=== PATIENT | male | born 1930 | race Caucasian/White ===

== ENCOUNTER 2016-09-05 15:45 | Emergency (ER) | payer MEDICARE, OTHER ==
[~2016-09-05] VITALS: Ht 165.1 cm; Wt 55.0 kg
[~2016-09-05 15:45] MED LIST: ADVAIR DISK1 INH; ASPIRIN325 MG PO; BL ADULT ASA81 MG PO; CAPTOPRIL12.5 MG OR; CARVEDILOL3.125 MG PO; CLONAZEP ODT1 MG OR; CORDARONE/200 MG/TAB PO; DONEPEZIL5 MG PO; DOXYCYCL HYC100 MG PO; FERROUS SULF325 M1 PO; FLOMAX0.4 M1 PO; FUROSEMIDE20 MG PO; HYTRIN2 MG PO; IMDUR60 MG PO; K-DUR/KLOR-CON10 MEQ PO; LASIX 20 MG TAB20 MG PO; LASIX 20 MG20 MG/TAB PO; LASIX 40 MG TAB40 MG PO; LEVAQUIN500 MG PO; LEVAQUIN750 MG PO; LIPITOR40 MG PO; LORAZEPAM0.5 MG PO; LOSARTAN POTASS25 MG PO; METOPROL TAR25 MG PO; METOPROLOL PO; OMEPRAZOLE20 MG PO; PLAVIX75 MG PO; POTASSIUM CHLO10 MEQ PO; PREDNISONE10 MG PO; PREVACID30 M1 PO; PREVACID30 M2 PO; SG ASA LOW81 M1 PO; SIMVASTATIN40 MG OR; SPIRIVA IN; TAMSULOSIN0.4 MG PO; TERAZOSIN1 MG OR; TESSALON PER100 MG PO; VALTREX1 GM OR
[2016-09-05 16:17] LABS: HEMATOCRIT 28.1 % (39.0-50.0); HEMOGLOBIN 9.1 g/dl (14.0-18.0); IMMATURE GRANULOCYTES 0.3 % (0.0-1.0); MEAN CELL VOLUME 97.9 fL CALC (80.0-100.0); MEAN CORPUSCULAR HGB 31.7 pG CALC (26.0-32.0); MEAN CORPUSCULAR HGB CONC 32.4 g/L CALC (32.0-36.0); NEUT# 1.43 thou/uL (1.82-7.42); RED BLOOD COUNT 2.87 mill/uL (4.70-6.10); RED CELL DISTRI WIDTH 14.7 % (11.5-15.5)
[2016-09-05 16:49] LABS: INTERNATIONAL NORMALIZED RATIO 1.1 RATIO (0.7-1.3); PROTHROMBIN TIME 11.6 SECONDS (9.0-12.5)
[2016-09-05 16:50] LABS: ALBUMIN 3.1 g/dL (3.2-5.0); ALKALINE PHOSPHATASE 90 u/l (38-126); ANION GAP 11 (6-22 (CALC)); BILIRUBIN, TOTAL 0.3 mg/dL (0.0-1.4); BUN 20 mg/dL (8-23); BUN/CREATININE RATIO 32 (12-20 (CALC)); CALCIUM 8.4 mg/dL (8.4-10.2); CARBON DIOXIDE 23 mmol/l (22-30); CHLORIDE 108 mmol/l (95-108); CREATININE 0.6 mg/dL (0.7-1.3); GFR > 60 ML/MIN (>=60 (CALC)); GFR FOR AFR.AMER. > 60 ML/MIN (>=60 (CALC)); GLUCOSE 107 mg/dL (82-115); POTASSIUM 4.2 mmol/l (3.5-5.1); SGOT/AST 39 u/l (19-48); SGPT/ALT 41 u/l (11-66); SODIUM 139 mmol/l (137-146); TOTAL PROTEIN 6.8 g/dL (6.3-8.2)
[2016-09-05 17:02] LABS: MYOGLOBIN 31 ng/mL (0 - 121)
[2016-09-05 17:22] VITALS: BP 120/67
== END 2016-09-05 17:35 | disposition home or self-care (01) ==
LOC: ED 15:45
PROVIDERS: Emergency Medicine
DX: T82.847A Pain due to cardiac prosthetic devices, implants and grafts, initial encounter (principal); R94.31 Abnormal electrocardiogram [ECG] [EKG]; I25.810 Atherosclerosis of coronary artery bypass graft(s) without angina pectoris; I10 Essential (primary) hypertension; Z86.73 Personal history of transient ischemic attack (TIA), and cerebral infarction without residual deficits; D64.9 Anemia, unspecified; I25.2 Old myocardial infarction; Z79.82 Long term (current) use of aspirin

== ENCOUNTER 2017-06-12 09:46 | Emergency (ER) | payer MEDICARE, OTHER ==
[~2017-06-12] VITALS: Ht 12.7 cm; Wt 57.3 kg
[~2017-06-12 09:46] MED LIST changes: +LIPITOR20 MG PO; -LIPITOR40 MG PO
[2017-06-12] MEDS ORDERED: LOSARTAN POT25 MG PO (10:10)
[2017-06-12] MEDS ORDERED: CETIRIZINE10 MG PO (10:14)
[2017-06-12] MEDS ORDERED: FLONASE AL50 MCG/ACT NAB (10:14)
[2017-06-12] MEDS ORDERED: STIOLTO RESPIMA1 AER IN (10:14)
[2017-06-12] MEDS ORDERED: SINGULAIR10 MG PO (10:15)
[2017-06-12 10:17] VITALS: BP 105/59
[2017-06-12] MEDS ORDERED: VOLTAREN1%GEL TOP (10:40)
[2017-06-12] MEDS ORDERED: ASPERCREME LIDOCA41 TOP (10:40)
== END 2017-06-12 10:50 | disposition home or self-care (01) ==
LOC: ED 09:46
DX: M25.552 Pain in left hip (principal); S76.012A Strain of muscle, fascia and tendon of left hip, initial encounter; M54.5 Low back pain

== ENCOUNTER 2017-08-04 10:01 | Emergency (ER) | payer MEDICARE, OTHER ==
[~2017-08-04] VITALS: Ht 165.1 cm; Wt 55.4 kg
[~2017-08-04 10:01] MED LIST changes: +ASPERCREME LIDOCA41 TOP; +CETIRIZINE10 MG PO; +FLONASE AL50 MCG/ACT NAB; +LOSARTAN POT25 MG PO; +SINGULAIR10 MG PO; +STIOLTO RESPIMA1 AER IN; +VOLTAREN1%GEL TOP
[2017-08-04] MEDS ORDERED: TRAMADOL HYDROC50 MG PO (10:54)
[2017-08-04 11:10] VITALS: BP 98/56
== END 2017-08-04 11:11 | disposition home or self-care (01) ==
LOC: ED 10:01
DX: M79.5 Residual foreign body in soft tissue (principal); M79.642 Pain in left hand; I10 Essential (primary) hypertension; I25.10 Atherosclerotic heart disease of native coronary artery without angina pectoris; I25.2 Old myocardial infarction; Z95.1 Presence of aortocoronary bypass graft; Z86.73 Personal history of transient ischemic attack (TIA), and cerebral infarction without residual deficits; Z95.0 Presence of cardiac pacemaker

== ENCOUNTER 2017-11-20 15:11 | Emergency (ER) | payer MEDICARE, OTHER ==
[~2017-11-20] VITALS: Ht 165.1 cm; Wt 54.5 kg
[~2017-11-20 15:11] MED LIST changes: +TRAMADOL HYDROC50 MG PO
[2017-11-20] MEDS ORDERED: ZYRTEC10 MG PO (15:44)
[2017-11-20] MEDS ORDERED: PLAVIX75 MG PO (15:44)
[2017-11-20 15:48] LABS: HEMATOCRIT 35.1 % (39.0-50.0); HEMOGLOBIN 10.3 g/dl (14.0-18.0); MEAN CELL VOLUME 86.2 fL CALC (80.0-100.0); MEAN CORPUSCULAR HGB 25.3 pG CALC (26.0-32.0); MEAN CORPUSCULAR HGB CONC 29.3 g/L CALC (32.0-36.0); NEUT# 3.38 thou/uL (1.82-7.42); RED BLOOD COUNT 4.07 mill/uL (4.70-6.10); RED CELL DISTRI WIDTH 23.7 % (11.5-15.5)
[2017-11-20 15:53] LABS: ALBUMIN 2.7 g/dL (3.2-5.0); ALKALINE PHOSPHATASE 96 u/l (38-126); ANION GAP 10 (6-22 (CALC)); BILIRUBIN, TOTAL 0.4 mg/dL (0.0-1.4); BUN 24 mg/dL (8-23); BUN/CREATININE RATIO 40 (12-20 (CALC)); CARBON DIOXIDE 23 mmol/l (22-30); CHLORIDE 112 mmol/l (95-108); CREATININE 0.6 mg/dL (0.7-1.3); GFR > 60 ML/MIN (>=60 (CALC)); GFR FOR AFR.AMER. > 60 ML/MIN (>=60 (CALC)); LIPASE 112 u/l (23-300); POTASSIUM 4.3 mmol/l (3.5-5.1); SGOT/AST 42 u/l (19-48); SODIUM 140 mmol/l (137-146); TOTAL PROTEIN 6.4 g/dL (6.3-8.2)
--- NOTE | 2017-11-20 16:21 | NUR ---
CALLED TO PT ROOM FOR STEMI ALERT. PT GIVING 2X TX OF ALBUTERAL. PT INTUBATED ON FIRST ATTEMPT BY . 7.5 TUBE SECURED AT 26 AT THE LIP. PLACEMENT VERIFIED BY BILATERAL OCCULTATION AND XRAY PRIOR TO TRANSPORT BY AIR TO [facility].
[2017-11-20 16:30] VITALS: BP 184/85
== END 2017-11-20 16:30 | disposition short-term general hospital (02) ==
LOC: ED 15:11
PROVIDERS: Family Medicine
PROC: 0BH17EZ Insertion of Endotracheal Airway into Trachea, Via Natural or Artificial Opening (ICD-10-PCS; principal; 2017-11-20)
DX: I50.9 Heart failure, unspecified (principal); N17.9 Acute kidney failure, unspecified; I10 Essential (primary) hypertension; R10.84 Generalized abdominal pain; R53.1 Weakness; R42 Dizziness and giddiness; R06.02 Shortness of breath

== ENCOUNTER 2017-12-15 11:09 | Observation (INO) | payer MEDICARE, OTHER ==
[~2017-12-15] VITALS: Ht 165.1 cm; Wt 48.7 kg
[~2017-12-15 11:09] MED LIST changes: +ZYRTEC10 MG PO
[2017-12-15 11:42] LABS: MEAN CELL VOLUME 86.2 fL CALC (80.0-100.0); MEAN CORPUSCULAR HGB 26.8 pG CALC (26.0-32.0); MEAN CORPUSCULAR HGB CONC 31.1 g/L CALC (32.0-36.0); NEUT# 4.69 thou/uL (1.82-7.42); RED CELL DISTRI WIDTH 24.3 % (11.5-15.5)
[2017-12-15 11:46] LABS: HEMATOCRIT 43.1 % (39.0-50.0); HEMOGLOBIN 13.4 g/dl (14.0-18.0)
[2017-12-15 11:54] LABS: INFLUENZA A NONE DETECTED (NONE DETECT); INFLUENZA B NONE DETECTED (NONE DETECT)
[2017-12-15 11:55] LABS: ANION GAP 14 (6-22 (CALC)); BUN 40 mg/dL (8-23); BUN/CREATININE RATIO 50 (12-20 (CALC)); CARBON DIOXIDE 22 mmol/l (22-30); CHLORIDE 103 mmol/l (95-108); CREATININE 0.8 mg/dL (0.7-1.3); GFR > 60 ML/MIN (>=60 (CALC)); GFR FOR AFR.AMER. > 60 ML/MIN (>=60 (CALC)); POTASSIUM 4.6 mmol/l (3.5-5.1); SODIUM 134 mmol/l (137-146)
--- NOTE | 2017-12-15 13:20 | NUR ---
CM received a call from the in the ED per 's request regarding admission status for FTT and hypertension. CM asked if a cardene drip is needed for the HTN, in the background stated"no just fluids". CM advised observation.
--- NOTE | 2017-12-15 13:44 | NUR ---
Dr. Yuan came into CM office stating he wanted to admit Patient as inpaient status. Digital Advertising Specialist stated that Patient only meets observational status. Patient had been brought into [facility] ED 11.20.2017 and transferred to [facility] related to condition. Dr. Yuan informed by other CM staff that possibly Patient's inpatient stay at [facility] could be used to qualify him for admission to SNF - related to 3 midnight+ stay in [facility]. CM calling [facility] to inquire on admission/discharge dates and inpatient/observational status whilst admitted at [facility].
--- NOTE | 2017-12-15 14:11 | NUR ---
PT OOB TO CHAIR NEXT TO STRETCHER PER DISCOMFORT IN THE STRETCHER. PT AWARE OF PENDING ADMISSION.
[2017-12-15 14:31] LABS: URINE BILIRUBIN - DIPSTICK NEGATIVE (NEGATIVE); URINE BLOOD DIPSTICK NEGATIVE (NEGATIVE); URINE COLOR YELLOW; URINE GLUCOSE - DIPSTICK NEGATIVE (NEGATIVE); URINE KETONE NEGATIVE (NEGATIVE); URINE LEUK ESTERASE NEGATIVE (NEGATIVE); URINE NITRITE - DIPSTICK NEGATIVE (Negative); URINE PH 5.5 (4.5-8.0); URINE PROTEIN - DIPSTICK NEGATIVE (NEG-TRACE); URINE UROBILINOGEN - DIPSTICK 0.2 E.U./dL (0.2)
[2017-12-15 14:41] LABS: URINE CLARITY CLEAR
--- NOTE | 2017-12-15 15:10 | NUR ---
PT TAKEN TO ROOM 269 WITHOUT INCIDENT. REPORT WAS TO ROCIO BLANC.
--- NOTE | 2017-12-15 15:30 | NUR ---
REPORT RECEIVED FROM LEANNE IN ED, PT ARRIVED ON UNIT VIA W/C @ 1505, ALERT AND ORIENTED X 4, ORIENTED TO ROOM AND CALL GUZMÁN, SETTLED IN BED, VITAL SIGNS MEASURED AND RECORDED, WILL CONTINUE TO MONITOR, SON IN ROOM. DR DICKENS JUST ROUNDED.
[2017-12-15 15:38] VITALS: BP 89/56
[2017-12-15 18:30] VITALS: BP 92/53
[2017-12-15 19:00] VITALS: BP 101/63
--- NOTE | 2017-12-15 19:47 | NUR ---
REPORT GIVEN BY ROCIO BLANC. PATIENT RESTING WITH EYES CLOSED. RESP EVEN AND UNLABORED. NO S/S OF DISTRESS NOTED. PLAN OF CARE DISCUSSED, FALL PRECAUTIONS IN PLACE, AND PATIENT INFORMED TO CALL WITH ANY QUESTIONS OR CONCERNS.
[2017-12-16 00:05] VITALS: BP 108/63
--- NOTE | 2017-12-16 00:30 | NUR ---
PATIENT AWAKE LAYING ING BED. RESP EVEN AND UNLABORED. NO S/S OF DISTRESS NOTED.
--- NOTE | 2017-12-16 04:02 | NUR ---
PATIENT RESTING WITH EYES CLOSED. RESP EVEN AND UNLABORED. NO S/S OF DISTRESS NOTED.
[2017-12-16 04:17] VITALS: BP 95/57
[2017-12-16 05:54] LABS: HEMATOCRIT 42.4 % (39.0-50.0); HEMOGLOBIN 13.2 g/dl (14.0-18.0); IMMATURE GRANULOCYTES 1.3 % (0.0-5.0); MEAN CELL VOLUME 86.7 fL CALC (80.0-100.0); MEAN CORPUSCULAR HGB CONC 31.1 g/L CALC (32.0-36.0); NEUT# 3.32 thou/uL (1.82-7.42); RED BLOOD COUNT 4.89 mill/uL (4.70-6.10); RED CELL DISTRI WIDTH 24.4 % (11.5-15.5)
[2017-12-16 06:10] LABS: ALBUMIN 2.7 g/dL (3.2-5.0); ALKALINE PHOSPHATASE 104 u/l (38-126); ANION GAP 8 (6-22 (CALC)); BILIRUBIN, TOTAL 0.5 mg/dL (0.0-1.4); BUN 31 mg/dL (8-23); BUN/CREATININE RATIO 40 (12-20 (CALC)); CARBON DIOXIDE 28 mmol/l (22-30); CHLORIDE 108 mmol/l (95-108); CREATININE 0.8 mg/dL (0.7-1.3); GFR > 60 ML/MIN (>=60 (CALC)); GFR FOR AFR.AMER. > 60 ML/MIN (>=60 (CALC)); MAGNESIUM 2.3 mg/dL (1.6-2.3); POTASSIUM 4.9 mmol/l (3.5-5.1); SGOT/AST 44 u/l (19-48); SODIUM 140 mmol/l (137-146); TOTAL PROTEIN 6.2 g/dL (6.3-8.2)
--- NOTE | 2017-12-16 07:41 | NUR ---
SHIFT CHANGE REPORT FROM JHONATAN, PT SLEEPING SOUNDLY IN RIGHT-SIDELYING POSITION, BREATHING AND NON-LABORED, NO SIGN DISCOMFORT, TELE MONITOR IN PLACE, CALL GUZMÁN IN REACH.
[2017-12-16 08:53] VITALS: BP 100/52
[2017-12-16 12:00] VITALS: BP 108/67
--- NOTE | 2017-12-16 12:22 | NUR ---
GREAT APPETITE AND ENJOYING ALL MEALS, ALL NEEDS ADDRESSED, CALL GUZMÁN IN REACH.
--- NOTE | 2017-12-16 16:28 | NUR ---
RESTING IN BED, SLEEPING, NO SIGN DICOMFORT.
[2017-12-16 16:33] VITALS: BP 109/60
[2017-12-16 19:30] VITALS: BP 101/61
--- NOTE | 2017-12-16 20:00 | NUR ---
PT RESTING IN THE BED. EASILY AROUSIBLE. PT DENIES PAIN. BED IN LOWEST POSITION. CALL LIGHT WITHIN REACH. REPORT RECIEVED FROM OFF GOING NURSE.
[2017-12-17 00:42] VITALS: BP 98/57
[2017-12-17 04:30] VITALS: BP 115/78
[2017-12-17 06:06] LABS: HEMATOCRIT 38.5 % (39.0-50.0); HEMOGLOBIN 12.1 g/dl (14.0-18.0); MEAN CELL VOLUME 86.3 fL CALC (80.0-100.0); MEAN CORPUSCULAR HGB 27.1 pG CALC (26.0-32.0); MEAN CORPUSCULAR HGB CONC 31.4 g/L CALC (32.0-36.0); RED BLOOD COUNT 4.46 mill/uL (4.70-6.10); RED CELL DISTRI WIDTH 24.3 % (11.5-15.5)
[2017-12-17 06:40] LABS: ANION GAP 7 (6-22 (CALC)); BUN 23 mg/dL (8-23); BUN/CREATININE RATIO 41 (12-20 (CALC)); CARBON DIOXIDE 25 mmol/l (22-30); CHLORIDE 108 mmol/l (95-108); CREATININE 0.6 mg/dL (0.7-1.3); GFR > 60 ML/MIN (>=60 (CALC)); GFR FOR AFR.AMER. > 60 ML/MIN (>=60 (CALC)); MAGNESIUM 2.1 mg/dL (1.6-2.3); POTASSIUM 4.2 mmol/l (3.5-5.1); SODIUM 136 mmol/l (137-146)
--- NOTE | 2017-12-17 07:40 | NUR ---
SHIFT CHANGE REPORT FROM DEWAYNE GUILLEN SLEEPING IN SUPINE POSITION WITH MOUTH BREATHING, NO SIGH DISTRESS, TELE MONITOR IN PLACE, CALL GUZMÁN IN REACH.
[2017-12-17 08:26] VITALS: BP 97/59
[2017-12-17 11:00] VITALS: BP 102/58
--- NOTE | 2017-12-17 11:28 | NUR ---
DR DICKENS ROUNDED, INFORMED PT OF CONDITION AND SUGGESTED HOSPICE CARE, I CALLED SON & POA (ROSALBA) TO HAVE HIM COME IN TO DISCUSS PLANS BUT NO ANSWER, MESSAGE LEFT ON PHONE.
--- NOTE | 2017-12-17 11:52 | NUR ---
SITTING UP ON SIDE OF BED HAVING MEAL AT THIS TIME, ALL NEEDS ADDRESSED.
--- NOTE | 2017-12-17 13:05 | NUR ---
SCRAPER MEAT CALLED REPORTING 10+ BEATS V-TACH, ON ASSESSMENT PT IN NO DISTRESS CONVERSING WITH SON, MEDICAL TEAM NOTIFIED AND GIVEN STRIP, WILL CONTINUE TO MONITOR.
--- NOTE | 2017-12-17 14:39 | NUR ---
DR DICKENS INFORMED PT OF CARDIAC CONDITION, RECOMMENDED HOSPICE CARE AND DISCUSSED DNR STATUS, PT HAD ALREADY PROVIDED LIVING WILL & POA, DNR FORM SIGNED BY PHYSICIAN AND PT, THIS WAS DONE IN THE PRESENCE OF ROSALBA DAILEY, PT'S SON & POA WHO STATED UNDERSTANDING.
[2017-12-17 15:00] VITALS: BP 98/62
--- NOTE | 2017-12-17 16:00 | NUR ---
RESTING IN BED, ALL NEEDS MET, NO C/O DISCOMFORT
[2017-12-17 19:14] VITALS: BP 112/61
--- NOTE | 2017-12-17 20:36 | NUR ---
REPORT RECIEVED FROM OFFGOING NURSE. PT IN BED. NO SIGNS OF PAIN OR DISTRESS. BED IN LOWEST POSITION. CALL LIGHT IN REACH.
--- NOTE | 2017-12-18 00:37 | NUR ---
PT RESTING IN BED WITH EYES CLOSED. NO S/S OF PAIN OR DISTRESS. BED IN LOWEST POSITI. CALL LIGHT W/I REACH.
--- NOTE | 2017-12-18 03:22 | NUR ---
PT RESTIN IN BED. EASILY AROUSED. NO PAIN OR DISTRESSED NOTED. CALL LIGHT WITHIN REACH.
[2017-12-18 04:00] VITALS: BP 101/69
[2017-12-18 07:30] VITALS: BP 89/55
--- NOTE | 2017-12-18 07:30 | NUR ---
PT WAS IN THE BATHROOM A 0725. REENTERED PT'S ROOM. SITTING ON THE SIDE OF THE BED IV SITE IS FREE FROM REDNESS OR EDEMA. HR IS REG,PULSES ARE STRONG X4, ABD IS SOFT WITH ACTIVE BS. BREATH SOUNDS ARE CLEAR, BILATERALLY, TELE MONITOR IN PLACE CONTINUE TO OBSERVE AND MONITOR.
--- NOTE | 2017-12-18 09:42 | NUR ---
SPOKE JACKIE LA FROM HOSPICE. SHE WILL EITHER SEND HER NURSE OR MANAGEMENT SUPERVISOR TO SPEAK WITH PT AND FAMILY
--- NOTE | 2017-12-18 09:48 | NUR ---
RANCH HAND LIVESTOCK FROM HOSPICE WILL BE HERE AFTER 11AM.
[2017-12-18 11:00] VITALS: BP 100/66
--- NOTE | 2017-12-18 11:40 | NUR ---
CESARIO FROM HOSPICE SPOKE WITH PT. AND FAMILY. ZAIN WILL COME IN AROUND 1PM TO SPEAK WITH PT AND FAMILY AND MAKE ARRANGEMENTS FOR HOME.
--- NOTE | 2017-12-18 14:00 | NUR ---
PT'S IV SITE DISCONITNUED CATHETER INTACT. FAMILY IN THE ROOM. DISCHARGE INSTRUCTIONS GIVEN AND VERBALIZED UNDERSTANDING. HOSPICE IN TO VISIT WITH PT. SENT ORDERS TO HOSPICE. CONTINUE TO OSBERVE AND MONITOR.
--- NOTE | 2017-12-18 15:02 | NUR ---
Discharge instructions given. Patient verbalizes understanding of same. Discharged in stable condition via Wheelchair to Home with family. All belongings sent with pt.
== END 2017-12-18 14:24 | disposition hospice, home (50) ==
LOC: ED 11:09 → ED-I 13:11 → ED 13:48 → MS2 13:49
PROVIDERS: Family Medicine; Nurse Practitioner Family; ADMIT Internal Medicine Nephrology; ATTEND Internal Medicine Nephrology
DX: I11.0 Hypertensive heart disease with heart failure (principal); I50.9 Heart failure, unspecified; J44.9 Chronic obstructive pulmonary disease, unspecified; R62.7 Adult failure to thrive; I25.10 Atherosclerotic heart disease of native coronary artery without angina pectoris; E78.5 Hyperlipidemia, unspecified; B19.20 Unspecified viral hepatitis C without hepatic coma; F41.9 Anxiety disorder, unspecified; F03.90 Unspecified dementia, unspecified severity, without behavioral disturbance, psychotic disturbance, mood disturbance, and anxiety; G47.33 Obstructive sleep apnea (adult) (pediatric); D50.9 Iron deficiency anemia, unspecified; R63.6 Underweight; I73.9 Peripheral vascular disease, unspecified; I25.2 Old myocardial infarction; Z95.0 Presence of cardiac pacemaker; Z95.1 Presence of aortocoronary bypass graft; Z86.73 Personal history of transient ischemic attack (TIA), and cerebral infarction without residual deficits; Z87.891 Personal history of nicotine dependence; Z68.1 Body mass index [BMI] 19.9 or less, adult; Z95.3 Presence of xenogenic heart valve; Z66 Do not resuscitate; Z51.5 Encounter for palliative care; Z95.5 Presence of coronary angioplasty implant and graft

== ENCOUNTER 2019-05-15 | Emergency (ER) | payer MEDICARE, OTHER ==
[2019-05-15 14:23] LABS: HEMATOCRIT 34.4 % (39.0-50.0); HEMOGLOBIN 11.2 g/dl (14.0-18.0); IMMATURE GRANULOCYTES 0.7 % (0.0-5.0); MEAN CORPUSCULAR HGB CONC 32.6 g/dL CAL (32.0-36.0); NEUT# 3.37 thou/uL (1.82-7.42); RED BLOOD COUNT 3.39 mill/uL (4.70-6.10); RED CELL DISTRI WIDTH 14.5 % (11.5-15.5)
[2019-05-15 14:29] LABS: MEAN CELL VOLUME 101.5 fL CALC (80.0-100.0)
[2019-05-15 14:32] LABS: INTERNATIONAL NORMALIZED RATIO 1.1 RATIO (0.7-1.3); PROTHROMBIN TIME 11.5 SECONDS (9.0-12.5)
[2019-05-15 14:37] LABS: ALBUMIN 3.1 g/dL (3.2-5.0); ALKALINE PHOSPHATASE 86 u/l (38-126); ANION GAP 11 (6-22 (CALC)); BILIRUBIN, TOTAL 0.5 mg/dL (0.0-1.4); BUN 36 mg/dL (8-23); BUN/CREATININE RATIO 42 (12-20 (CALC)); CARBON DIOXIDE 25 mmol/l (22-30); CHLORIDE 104 mmol/l (95-108); CREATININE 0.9 mg/dL (0.7-1.3); GFR > 60 ML/MIN (>=60 (CALC)); GFR FOR AFR.AMER. > 60 ML/MIN (>=60 (CALC)); POTASSIUM 4.1 mmol/l (3.5-5.1); SGOT/AST 37 u/l (19-48); SODIUM 136 mmol/l (137-146); TOTAL PROTEIN 7.1 g/dL (6.3-8.2)
[2019-05-15 14:45] LABS: MYOGLOBIN 41 ng/mL (0 - 121)
== END 2019-05-15 18:20 | disposition left against medical advice (07) ==
PROVIDERS: Family Medicine
DX: R55 Syncope and collapse (principal); I10 Essential (primary) hypertension; I25.10 Atherosclerotic heart disease of native coronary artery without angina pectoris; I25.2 Old myocardial infarction; Z95.1 Presence of aortocoronary bypass graft; Z95.0 Presence of cardiac pacemaker; Z86.73 Personal history of transient ischemic attack (TIA), and cerebral infarction without residual deficits; Z91.19 Patient's noncompliance with other medical treatment and regimen

== ENCOUNTER 2019-12-26 13:58 | Inpatient (IN) | payer MEDICARE, OTHER ==
[~2019-12-26] VITALS: Ht 165.1 cm; Wt 47.0 kg
--- NOTE | 2019-12-26 14:20 | NUR ---
Pt to room # 11 via EMS stretchher.
[2019-12-26 15:14] LABS: HEMATOCRIT 34.9 % (39.0-50.0); HEMOGLOBIN 11.5 g/dl (14.0-18.0); IMMATURE GRANULOCYTES 0.8 % (0.0-5.0); MEAN CELL VOLUME 100.6 fL CALC (80.0-100.0); MEAN CORPUSCULAR HGB 33.1 pG CALC (26.0-32.0); NEUT# 3.34 thou/uL (1.82-7.42); RED BLOOD COUNT 3.47 mill/uL (4.70-6.10)
--- NOTE | 2019-12-26 15:30 | NUR ---
IV MEDS INFUSING WITHOUT DIFFICULTY. BP REMAINS LOW. FLUIDS INFUSING. ALL OTHER VITALS STABLE.
[2019-12-26 15:36] LABS: ALBUMIN 3.5 g/dL (3.2-5.0); ALKALINE PHOSPHATASE 109 u/l (38-126); ANION GAP 11 (6-22 (CALC)); BILIRUBIN, TOTAL 0.6 mg/dL (0.0-1.4); CARBON DIOXIDE 26 mmol/l (22-30); CHLORIDE 99 mmol/l (95-108); CREATININE 0.9 mg/dL (0.7-1.3); GFR > 60 ML/MIN (>=60 (CALC)); GFR FOR AFR.AMER. > 60 ML/MIN (>=60 (CALC)); POTASSIUM 4.2 mmol/l (3.5-5.1); SGOT/AST 47 u/l (19-48); SODIUM 132 mmol/l (137-146); TOTAL PROTEIN 8.2 g/dL (6.3-8.2)
[2019-12-26 15:43] LABS: BUN 41 mg/dL (8-23); BUN/CREATININE RATIO 46 (12-20 (CALC))
[2019-12-26] MEDS ORDERED: IRON (FERROUS S50 MG PO (16:08)
--- NOTE | 2019-12-26 16:28 | NUR ---
WARM BLANKET PROVIDED. BED IN LOW POSITION. IV MEDS CONTINUE TO INFUSE WITHOUT DIFFICULTY.
--- NOTE | 2019-12-26 17:35 | NUR ---
IV MEDS COMPLETED. BLANKETS PROVIDED. VITALS STABLE, BP REMAINS LOW, MD AWARE.
[2019-12-26 17:58] LABS: URINE BILIRUBIN - DIPSTICK NEGATIVE (NEGATIVE); URINE BLOOD DIPSTICK NEGATIVE (NEGATIVE); URINE COLOR YELLOW; URINE GLUCOSE - DIPSTICK NEGATIVE (NEGATIVE); URINE KETONE NEGATIVE (NEGATIVE); URINE LEUK ESTERASE NEGATIVE (NEGATIVE); URINE NITRITE - DIPSTICK NEGATIVE (Negative); URINE PROTEIN - DIPSTICK NEGATIVE (NEG-TRACE); URINE SPECIFIC GRAVITY 1.015; URINE UROBILINOGEN - DIPSTICK 0.2 E.U./dL (0.2)
--- NOTE | 2019-12-26 18:05 | NUR ---
REPORT CALLED TO FRAN GALLARDO RN.
[2019-12-26 18:20] VITALS: BP 95/64
--- NOTE | 2019-12-26 18:20 | NUR ---
PATIENT ARRIVE TO FLOOR FROM ER, PATIENT PLACED ON 2 LITERS OF 02. PATIENT ALERT AND ORIENTED AND WAS ORIENTED TO ROOM. ALL SAFETY MEASURES ARE IN PLACE CALL LIGHT NEAR SIDERAILS UP X 2. WARM BLANKET GIVEN TO PATIENT.
--- NOTE | 2019-12-26 20:05 | NUR ---
PT LAYING IN BED, NO S/O DISTRESS NOTED AT THIS TIME. DINNER TRAY AT BEDSIDE, PT DENIES BEING HUNGRY. OFFERED WATER, DENIED. ATTEMPTS TO OBTAIN QUESTIONS FOR ADMISSION MADE AT THIS TIME, BUT IT IS VERY DIFFICULT TO COMMUNICATE WITH PT DUE TO NOISE IN NEG PRESSURE ROOM AND PT DID NOT BRING HIS HEARING AIDS WITH HIM. HE IS VERY HARD OF HEARING. PT ALSO WOULD BECOME SOMEWHAT AGITATED WHEN ASKED QUESTIONS. I EXPLAINED LOVONOX MEDICATION SHOT TO THE PT, HE SAID "GOD NO!" PT DOES APPEARS LOCX4 AT THIS TIME. WILL CONTINUE TO MONITOR BP AND OXYGEN SAT LEVELS. 96%RA AT THIS TIME.
--- NOTE | 2019-12-26 20:34 | NUR ---
RETURNED SONS CALL WITH PERMISSION OF PT, PROVIDED PASSCODE. THIS HAD NOT BEEN PROVIDED IN ED. DISCUSSED TESTS, LABS AND POC WITH SON, AGREED. HE REPORTS THAT HIS FATHER LIVES ALONE AT HOME.
[2019-12-26 20:50] VITALS: BP 84/52
[2019-12-26 22:10] VITALS: BP 91/58
--- NOTE | 2019-12-26 22:18 | NUR ---
PT SLEEPING, AWOKE TO MY VOICE AND TOUCH. B/P ASSESSED AT THIS TIME, 93/58. PT C/O BEING DISTURBED AND WANTING SLEEP. I EXPLAINED TO THE PT WHY HE WAS GETTING SO MANY V/S ASSESSMENTS DUE TO HYPOTENSION UPON ADMISSION. HE ASKED ME TO LEAVE HIM ALONE AND LET HIM "GET SOME REST" FOR AWHILE. CALL LIGHT AT SIDE ALONG WITH URINAL AND PT REORIENTED TO ITS USE.
[2019-12-26 23:57] VITALS: BP 90/52
--- NOTE | 2019-12-27 | NUR ---
PT IS RESTING IN BED, NO S/SX OF DISCOMFORT OR DISTRESSED NOTED AT THIS TIME, WILL CONTINUE TO MONITOR.
[2019-12-27 04:08] VITALS: BP 94/54
--- NOTE | 2019-12-27 04:08 | NUR ---
V/S ASSESSED, EMPTIED URINAL OF 300CC OF DARK YELLOW URINE. PT SPILLED SOME URINE IN BED AND ON HIS GOWN, PT CLEANED OF URINE AND BEDDING CHANGED. PT DENIES NEEDS AT THIS TIME. CALL LIGHT AT SIDE.
[2019-12-27 05:32] LABS: HEMATOCRIT 33.5 % (39.0-50.0); IMMATURE GRANULOCYTES 0.5 % (0.0-5.0); MEAN CELL VOLUME 101.2 fL CALC (80.0-100.0); MEAN CORPUSCULAR HGB 33.2 pG CALC (26.0-32.0); MEAN CORPUSCULAR HGB CONC 32.8 g/dL CAL (32.0-36.0); NEUT# 3.69 thou/uL (1.82-7.42); RED BLOOD COUNT 3.31 mill/uL (4.70-6.10); RED CELL DISTRI WIDTH 13.1 % (11.5-15.5)
[2019-12-27 06:00] LABS: ALKALINE PHOSPHATASE 109 u/l (38-126); ANION GAP 9 (6-22 (CALC)); BILIRUBIN, TOTAL 0.5 mg/dL (0.0-1.4); BUN 34 mg/dL (8-23); BUN/CREATININE RATIO 40 (12-20 (CALC)); C-REACTIVE PROTEIN 3.2 mg/dL (0-0.9); CARBON DIOXIDE 26 mmol/l (22-30); CHLORIDE 105 mmol/l (95-108); CREATININE 0.8 mg/dL (0.7-1.3); GFR > 60 ML/MIN (>=60 (CALC)); GFR FOR AFR.AMER. > 60 ML/MIN (>=60 (CALC)); POTASSIUM 4.6 mmol/l (3.5-5.1); SGOT/AST 27 u/l (19-48); SODIUM 136 mmol/l (137-146)
[2019-12-27 10:50] VITALS: BP 102/61
[2019-12-27 14:58] VITALS: BP 108/64
[2019-12-27 19:40] VITALS: BP 103/58
--- NOTE | 2019-12-27 20:00 | NUR ---
REPORT RECEIEVED FROM DAY SHIFT, PT IS A&O X 2 AND PULLED OUT PIV AT SHIFT CHANGE. NO CURRENT S/SX OF DISTRESS OR DISCOMFORT NOTED AT THIS TIME. TELE IN PLACE. WILL OBTAIN NEW IV ACCESS, CONTINUE TO MONITOR.
--- NOTE | 2019-12-28 | NUR ---
PT IS RESTING IN BED, NO S/SX OF DISCOMFORT OR DISTRESSED NOTED AT THIS TIME, WILL CONTINUE TO MONITOR.
[2019-12-28 00:35] VITALS: BP 93/63
--- NOTE | 2019-12-28 04:00 | NUR ---
PT IS RESTING IN BED, NO S/SX OF DISCOMFORT OR DISTRESSED NOTED AT THIS TIME, WILL CONTINUE TO MONITOR.
--- NOTE | 2019-12-28 04:00 | NUR ---
PT IS RESTING IN BED, NO S/SX OF DISCOMFORT OR DISTRESSED NOTED AT THIS TIME, WILL CONTINUE TO MONITOR.
[2019-12-28 05:05] VITALS: BP 103/64
[2019-12-28 06:40] LABS: HEMATOCRIT 34.4 % (39.0-50.0); HEMOGLOBIN 11.1 g/dl (14.0-18.0); MEAN CELL VOLUME 101.2 fL CALC (80.0-100.0); MEAN CORPUSCULAR HGB 32.6 pG CALC (26.0-32.0); MEAN CORPUSCULAR HGB CONC 32.3 g/dL CAL (32.0-36.0); RED BLOOD COUNT 3.4 mill/uL (4.70-6.10); RED CELL DISTRI WIDTH 13.1 % (11.5-15.5)
[2019-12-28 06:58] LABS: ANION GAP 11 (6-22 (CALC)); BUN 21 mg/dL (8-23); BUN/CREATININE RATIO 27 (12-20 (CALC)); CARBON DIOXIDE 24 mmol/l (22-30); CHLORIDE 103 mmol/l (95-108); CREATININE 0.8 mg/dL (0.7-1.3); GFR > 60 ML/MIN (>=60 (CALC)); GFR FOR AFR.AMER. > 60 ML/MIN (>=60 (CALC)); POTASSIUM 4.3 mmol/l (3.5-5.1); SODIUM 134 mmol/l (137-146)
[2019-12-28 08:19] VITALS: BP 106/65
--- NOTE | 2019-12-28 08:19 | NUR ---
PT RESTING IN BED, NO SIGNS OF DISTRESS NOTED, RESP EVEN AND UNLABORED. PT ALERT AND ORIENTED X3, DISCUSSED POC, PT VOICES NO NEEDS OR COMPLAINTS AT THIS TIME. ASSESSMENT COMPLETED, CALL LIGHT IN REACH,CONTINUE TO MONITOR.
[2019-12-28 10:55] VITALS: BP 92/59
[2019-12-28] MEDS ORDERED: AMOX/K CLAV875 M1 PO (12:14)
--- NOTE | 2019-12-28 13:07 | NUR ---
DISCUSSED DISCHARGE INSTRUCTIONS, INFORMED PT THAT COVID SWAB NEGATIVE. PT SIGNED AND CALLED HIS RIDE, IV REMOVED, CATHETER INTACT. WILL CALL ONCE RIDE ARRIVES.
--- NOTE | 2019-12-28 13:28 | NUR ---
Discharge instructions given. Patient verbalizes understanding of same. Discharged in stable condition via Wheelchair to Home with family. All belongings sent with pt.
== END 2019-12-28 13:28 | disposition home or self-care (01) | DRG 195 ==
LOC: ED 13:58 → ED-I 14:39 → ED 14:39 → ED-I 16:01 → ED 16:11 → MS2 16:12
PROVIDERS: Family Medicine; Nurse Practitioner; ADMIT Internal Medicine; ATTEND Internal Medicine
DX: J18.9 Pneumonia, unspecified organism (principal); I95.9 Hypotension, unspecified; R09.02 Hypoxemia; I11.0 Hypertensive heart disease with heart failure; I50.9 Heart failure, unspecified; J43.9 Emphysema, unspecified; I25.10 Atherosclerotic heart disease of native coronary artery without angina pectoris; R76.8 Other specified abnormal immunological findings in serum; I73.9 Peripheral vascular disease, unspecified; E78.5 Hyperlipidemia, unspecified; G47.33 Obstructive sleep apnea (adult) (pediatric); F41.9 Anxiety disorder, unspecified; I25.2 Old myocardial infarction; B19.20 Unspecified viral hepatitis C without hepatic coma; Z95.1 Presence of aortocoronary bypass graft; Z95.0 Presence of cardiac pacemaker; Z86.73 Personal history of transient ischemic attack (TIA), and cerebral infarction without residual deficits; Z95.5 Presence of coronary angioplasty implant and graft; Z87.891 Personal history of nicotine dependence; Z95.3 Presence of xenogenic heart valve; Z20.828 Contact with and (suspected) exposure to other viral communicable diseases
CPT/HCPCS: J1650; Q9967

== ENCOUNTER 2020-05-24 11:15 | Observation (INO) | payer MEDICARE, OTHER ==
[~2020-05-24] VITALS: Ht 165.1 cm; Wt 42.0 kg
[~2020-05-24 11:15] MED LIST changes: +AMOX/K CLAV875 M1 PO; -CARVEDILOL3.125 MG PO; +IRON (FERROUS S50 MG PO; -LASIX 20 MG TAB20 MG PO
[2020-05-24 13:11] LABS: HEMATOCRIT 30.5 % (39.0-50.0); HEMOGLOBIN 9.7 g/dl (14.0-18.0); IMMATURE GRANULOCYTES 0.4 % (0.0-5.0); MEAN CELL VOLUME 102.3 fL CALC (80.0-100.0); MEAN CORPUSCULAR HGB 32.6 pG CALC (26.0-32.0); MEAN CORPUSCULAR HGB CONC 31.8 g/dL CAL (32.0-36.0); NEUT# 3.71 thou/uL (1.82-7.42); RED BLOOD COUNT 2.98 mill/uL (4.70-6.10); RED CELL DISTRI WIDTH 15.8 % (11.5-15.5)
[2020-05-24 13:24] LABS: ALBUMIN 3.2 g/dL (3.2-5.0); ALKALINE PHOSPHATASE 103 u/l (38-126); ANION GAP 11 (6-22 (CALC)); BILIRUBIN, TOTAL 0.7 mg/dL (0.0-1.4); BUN 57 mg/dL (8-23); BUN/CREATININE RATIO 78 (12-20 (CALC)); CHLORIDE 102 mmol/l (95-108); CREATININE 0.7 mg/dL (0.7-1.3); GFR > 60 ML/MIN (>=60 (CALC)); GFR FOR AFR.AMER. > 60 ML/MIN (>=60 (CALC)); POTASSIUM 3.9 mmol/l (3.5-5.1); SGOT/AST 37 u/l (19-48); SODIUM 132 mmol/l (137-146); TOTAL PROTEIN 7.3 g/dL (6.3-8.2)
[2020-05-24 13:25] LABS: CARBON DIOXIDE 23 mmol/l (22-30)
[2020-05-24 13:48] LABS: URINE BILIRUBIN - DIPSTICK NEGATIVE (NEGATIVE); URINE BLOOD DIPSTICK NEGATIVE (NEGATIVE); URINE COLOR YELLOW; URINE GLUCOSE - DIPSTICK NEGATIVE (NEGATIVE); URINE KETONE NEGATIVE (NEGATIVE); URINE LEUK ESTERASE NEGATIVE (NEGATIVE); URINE PH 5.5 (4.5-8.0); URINE PROTEIN - DIPSTICK TRACE mg/dL (NEG-TRACE); URINE SPECIFIC GRAVITY 1.025; URINE UROBILINOGEN - DIPSTICK 0.2 E.U./dL (0.2)
[2020-05-24 13:50] LABS: URINE NITRITE - DIPSTICK NEGATIVE (Negative)
[2020-05-24 16:53] VITALS: BP 91/60
[2020-05-24 19:50] VITALS: BP 100/61
[2020-05-25] VITALS: BP 100/67
[2020-05-25 04:00] VITALS: BP 96/67
[2020-05-25 06:38] LABS: HEMATOCRIT 29.8 % (39.0-50.0); HEMOGLOBIN 9.1 g/dl (14.0-18.0); MEAN CELL VOLUME 105.7 fL CALC (80.0-100.0); MEAN CORPUSCULAR HGB 32.3 pG CALC (26.0-32.0); MEAN CORPUSCULAR HGB CONC 30.5 g/dL CAL (32.0-36.0); RED BLOOD COUNT 2.82 mill/uL (4.70-6.10); RED CELL DISTRI WIDTH 15.9 % (11.5-15.5)
[2020-05-25 06:59] LABS: ANION GAP 10 (6-22 (CALC)); BUN 45 mg/dL (8-23); BUN/CREATININE RATIO 63 (12-20 (CALC)); CARBON DIOXIDE 23 mmol/l (22-30); CHLORIDE 103 mmol/l (95-108); CREATININE 0.7 mg/dL (0.7-1.3); GFR > 60 ML/MIN (>=60 (CALC)); GFR FOR AFR.AMER. > 60 ML/MIN (>=60 (CALC)); MAGNESIUM 2.3 mg/dL (1.6-2.3); POTASSIUM 4.1 mmol/l (3.5-5.1); SODIUM 132 mmol/l (137-146)
[2020-05-25 07:53] VITALS: BP 81/50
[2020-05-25 08:44] VITALS: BP 93/60
[2020-05-25] MEDS ORDERED: AMIODARONE200 MG PO (10:13)
[2020-05-25 10:30] VITALS: BP 92/65
== END 2020-05-25 12:10 | disposition home health service (06) ==
LOC: ED 11:15 → ED-I 14:28 → ED 14:38 → MS2 14:39
PROVIDERS: Family Medicine; ADMIT Internal Medicine; ATTEND Internal Medicine
DX: I95.9 Hypotension, unspecified (principal); I49.9 Cardiac arrhythmia, unspecified; D64.9 Anemia, unspecified; I11.0 Hypertensive heart disease with heart failure; I50.9 Heart failure, unspecified; E78.5 Hyperlipidemia, unspecified; I25.10 Atherosclerotic heart disease of native coronary artery without angina pectoris; S00.93XA Contusion of unspecified part of head, initial encounter; F41.9 Anxiety disorder, unspecified; F03.90 Unspecified dementia, unspecified severity, without behavioral disturbance, psychotic disturbance, mood disturbance, and anxiety; J43.9 Emphysema, unspecified; N40.0 Benign prostatic hyperplasia without lower urinary tract symptoms; I73.9 Peripheral vascular disease, unspecified; B19.20 Unspecified viral hepatitis C without hepatic coma; I25.2 Old myocardial infarction; W01.0XXA Fall on same level from slipping, tripping and stumbling without subsequent striking against object, initial encounter; Y92.009 Unspecified place in unspecified non-institutional (private) residence as the place of occurrence of the external cause; Z95.5 Presence of coronary angioplasty implant and graft; Z95.1 Presence of aortocoronary bypass graft; Z86.73 Personal history of transient ischemic attack (TIA), and cerebral infarction without residual deficits; Z95.3 Presence of xenogenic heart valve; Z87.891 Personal history of nicotine dependence; Z95.810 Presence of automatic (implantable) cardiac defibrillator; Z20.822 Contact with and (suspected) exposure to COVID-19
CPT/HCPCS: G0378

== ENCOUNTER 2020-05-30 11:01 | Inpatient (IN) | payer MEDICARE, OTHER ==
[2020-05-30] VITALS (43 sets, daily range): BP systolic 59–110; BP diastolic 37–76
[~2020-05-30] VITALS: Ht 165.1 cm; Wt 60.0 kg
[~2020-05-30 11:01] MED LIST changes: +AMIODARONE200 MG PO
--- NOTE | 2020-05-30 11:01 | NUR ---
TO ROOM VIA EMS, MD AT BEDSIDE.
[2020-05-30 11:40] LABS: HEMATOCRIT 27.5 % (39.0-50.0); HEMOGLOBIN 8.4 g/dl (14.0-18.0); IMMATURE GRANULOCYTES 0.4 % (0.0-5.0); MEAN CELL VOLUME 104.6 fL CALC (80.0-100.0); MEAN CORPUSCULAR HGB 31.9 pG CALC (26.0-32.0); MEAN CORPUSCULAR HGB CONC 30.5 g/dL CAL (32.0-36.0); NEUT# 3.44 thou/uL (1.82-7.42); RED BLOOD COUNT 2.63 mill/uL (4.70-6.10); RED CELL DISTRI WIDTH 16.9 % (11.5-15.5)
[2020-05-30 11:59] LABS: ALKALINE PHOSPHATASE 117 u/l (38-126); BILIRUBIN, TOTAL 0.7 mg/dL (0.0-1.4); CARBON DIOXIDE 20 mmol/l (22-30); CHLORIDE 103 mmol/l (95-108); CREATININE 1.1 mg/dL (0.7-1.3); GFR > 60 ML/MIN (>=60 (CALC)); GFR FOR AFR.AMER. > 60 ML/MIN (>=60 (CALC)); LIPASE 243 u/l (23-300); MAGNESIUM 2.8 mg/dL (1.6-2.3); SGOT/AST 34 u/l (19-48); SODIUM 130 mmol/l (137-146)
[2020-05-30 12:02] LABS: ANION GAP 13 (6-22 (CALC)); BUN 69 mg/dL (8-23); BUN/CREATININE RATIO 63 (12-20 (CALC)); POTASSIUM 5.6 mmol/l (3.5-5.1)
[2020-05-30 12:07] LABS: ACT PARTIAL THROMBO TIME 23.6 SECONDS (20.0-32.5); INTERNATIONAL NORMALIZED RATIO 1.1 RATIO (0.7-1.3); PROTHROMBIN TIME 11.2 SECONDS (9.0-12.5)
[2020-05-30 12:18] LABS: D-DIMER 5.39 mg/L (0.19-0.60)
--- NOTE | 2020-05-30 12:18 | NUR ---
TO BEDSIDE,PATIENT C/O OF CHEST DISCOMFORT. PHYSICIAN AWARE. ORDERS GIVN.
--- NOTE | 2020-05-30 12:24 | NUR ---
EKG COMPLETED AND ASPIRIN PO. SON AT BEDSIDE
--- NOTE | 2020-05-30 12:44 | NUR ---
PATIENT REGISTRATION CLERK ADMIN NEB PER MD ORDER. PT C C/O LEGS COLD, NEDS PILLOW, BED IS NO GOOD, WANTS TO GET UPSTAIRS. AIRWAY INTACT AND PATENT. WEAK PRODUCTIVE COUGH. VSS. NO MARKED INCREASE IN WOB. PT SPEAKING IN FULL SENTENCES.
--- NOTE | 2020-05-30 12:59 | NUR ---
RT AT BEDSIDE FOR NEB TX
[2020-05-30 13:04] LABS: URINE BILIRUBIN - DIPSTICK NEGATIVE (NEGATIVE); URINE BLOOD DIPSTICK NEGATIVE (NEGATIVE); URINE COLOR YELLOW; URINE GLUCOSE - DIPSTICK NEGATIVE (NEGATIVE); URINE KETONE NEGATIVE (NEGATIVE); URINE LEUK ESTERASE NEGATIVE (NEGATIVE); URINE PH 5.5 (4.5-8.0); URINE PROTEIN - DIPSTICK 30 mg/dL (NEG-TRACE); URINE UROBILINOGEN - DIPSTICK 0.2 E.U./dL (0.2)
[2020-05-30 13:08] LABS: URINE NITRITE - DIPSTICK NEGATIVE (Negative)
--- NOTE | 2020-05-30 13:15 | NUR ---
REPORT TO GUANACO NAIR
--- NOTE | 2020-05-30 13:42 | NUR ---
HEARING AIDS PUT IN FOR PATIENT
--- NOTE | 2020-05-30 14:27 | NUR ---
RESTING QUIETLY. CALL GUZMÁN IN REACH
--- NOTE | 2020-05-30 14:54 | NUR ---
REPORT CALLED TO LEANNE BLANC ON MED SURG AT THIS TIME. JOANIE BLANC PTS NURSE MADE AWARE AND PT WILL BE GOING TO RM 280 SHORTLY.
--- NOTE | 2020-05-30 15:00 | NUR ---
PT ARRIVED TO ROOM 280 FROM ER ACCOMPANIED BY JOANIE BLANC. UPON TRANSFERRING PT TO HOSPITAL BED, IT WAS NOTED THAT PT WAS CYANOTIC AND AGONAL BREATHING. RAPID RESPONSE WAS CALLED. WITH RT MICHELLE IN ROOM, NEED TO INTUBATE WAS ESTABLISHED, SYEDA DORMAN CALLED. PT INTUBATED BY MICHELLE KOWALSKI, DR PACK AT BEDSIDE SOON THEREAFTER. BLOOD PRESSURE WAS NOT GOTTEN PER LACK OF PULSATION TO AC, EVEN WITH DOPPLER. O2 SAT ALSO DID NOT READ. PT SEEN TO BE PACED RHYTHM ON THE MONITOR, WITH VISIBLE PULSATION IN HIS NECK ARTERIES. PT EVENTUALLY BAGGED AND TAKEN TO ICU BED 1 WHERE THIERNO BLANC TOOK OVER CARE FOR PT.
--- NOTE | 2020-05-30 15:00 | NUR ---
PATIENT TRANSFERRED TO FLOOR VIA STRETCHER,TALKING ON THE WAY TO ROOM 280. UPON ARRIVAL AND TRANSFER TO BED IN ROOM 280 PATIENT NOT RESPONDING, COLOR POOR, PULSE PRESENT, BREATHING AGONAL. RAPID RESPONSE CALLED. TO BEDSIDE.
--- NOTE | 2020-05-30 15:18 | NUR ---
Pt condition deteriorating. ET tube 8.0 inserted at 24 at the teeth, ambu bag for breathing. BS 163 per accu check. HR 60 per monitor. 1526 Systolic B/P 70 per dopler. 1531 Levofed @ 0.134 mcq.
--- NOTE | 2020-05-30 16:19 | NUR ---
PT INTBATED IN ROOM 280 BY RT. 1X ATTEMPT TO INTUBATE. NON TRAUMATIC INTUBATION. BBS=/ETCO2 + COLOR CHANGE/ CONDENSATION IN TUBE AND CXR CONFIRM PLACEMENT OF ETT. PT PLACED ON INVASIVE MECHANICAL VENTILATION IN ICU 1. INITIAL VENT PARAMETERS INITIATED. TRAM INSPECTOR TO MONITOR. MD, RNs IN ROOM AT THIS TIME. CENTRAL LINE PLACEMENT TAKING PLACE.
--- NOTE | 2020-05-30 16:22 | NUR ---
1539-ARRIVED TO ICU VIA BED WITH MEDMOHITG RN, RETAIL PHARMACY TECHNICIAN, RT, AND ER MD. INTUBATED WITH 8.0 ET TUBE, BAGGED RESPIRATIONS; PT WITH EYES CLOSED AND MOVING AROUND IN BED; SOFT RESTRAINTS TO ALL 4 EXTREMITIES AND PT PULLING AGAINST AND RESISTANT TO RESTRAINTS. HYPOTENSIVE WITH SBP IN THE 50'S; LEVOPHED INFUSING AT 10 MCG/MIN; TITRATED UP TO 16 MCG/MIN AT THIS TIME. 1548-DR. PACK AT BEDSIDE FOR CENTRAL LINE PLACEMENT; ATIVAN GIVEN FOR EMERGENT CARE. 1603-LEVOPHED TITRATED UP PER PROTOCOL; CURRENTLY INFUSING AT 24 MCG/MIN. BLOOD PRESSURE 89/59.
--- NOTE | 2020-05-30 16:35 | NUR ---
TRIPLE LUMEN NOW TO RIGHT INTERNAL JUGULAR; PATENT WITH GOOD BLOOD RETURN TO ALL LUMENS. ET TUBE 8.0 24 AT LIP LINE; VENT SETTINGS CURRENTLY RATE OF 24; TV 450; PEEP 5.0; FIO2 100%. RADIOLOGY AT BEDSIDE FOR PORTABLE CHEST XRAY
--- NOTE | 2020-05-30 17:20 | NUR ---
16F OG TUBE INSERTED AND PLACEMENT VERIFIED WITH AIR ADMINISTRATION; CONNECTED TO LIS. 16F DOZIER CATHETER INSERTED AND DRAINING CLEAR YELLOW URINE. SCDS APPLIED TO BLE. SOFT RESTRAINTS TO ANKLES REMOVED; SOFT WRIST RESTRAINTS REMAIN IN PLACE.
--- NOTE | 2020-05-30 17:30 | NUR ---
SON, ROSALBA, CALLED AND UPDATED ON PATIENT CONDITION; ALL QUESTIONS ANSWERED TO SATISFACTION.
--- NOTE | 2020-05-30 17:47 | NUR ---
DIPRIVAN INITIATED AT 10 MCG/KG/MIN; NORMAL SALINE INITIATED AT 100ML/HR; LEVOPHED CONTINUES TO INFUSE AT 26 MCG/MIN. PT RESTING IN [place]. WILL CONTINUE TO CLOSELY MONITOR.
--- NOTE | 2020-05-30 20:08 | NUR ---
REPORT GIVEN BY THIERNO. PATIENT IS INTABATED AND SEDATED. RESP EVEN AND UNLABORED. RIJ TLC INFUSING NS, LEVO, AND DIPIRVAN. DOZIER DRAINING CLEAR, YELLOW URINE. BILATERAL WRIST RESTRIANTS. LUNG SOUNDS COARSE. SCD IN PLACE PUMPING. FALL AND SAFTEY PRECAUTIONS IN PLACE.
--- NOTE | 2020-05-30 22:00 | NUR ---
PATIENT INTABATED AND SEDATED. NO S/S OF DISTRESS NOTED. FALL AND SAFTEY PRECAUTIONS IN PLACE.
[2020-05-31] VITALS (22 sets, daily range): BP systolic 87–111; BP diastolic 57–73
--- NOTE | 2020-05-31 | NUR ---
INTABATED AND SEDATED. NO S/S OF DISTRESS NOTED.
--- NOTE | 2020-05-31 02:00 | NUR ---
NO S/S OF DISTRESS NOTED. FALL AND SAFTEY PRECAUTIONS IN PLACE. INTABATED AND SEDATED. FALL AND SAFTEY PRECAUTIONS IN PLACE.
--- NOTE | 2020-05-31 05:25 | NUR ---
MORNING LABS DRAWN FROM [facility].
[2020-05-31 05:47] LABS: HEMATOCRIT 27.7 % (39.0-50.0); HEMOGLOBIN 8.3 g/dl (14.0-18.0); IMMATURE GRANULOCYTES 0.6 % (0.0-5.0); MEAN CELL VOLUME 104.5 fL CALC (80.0-100.0); MEAN CORPUSCULAR HGB 31.3 pG CALC (26.0-32.0); NEUT# 7.96 thou/uL (1.82-7.42); RED BLOOD COUNT 2.65 mill/uL (4.70-6.10); RED CELL DISTRI WIDTH 16.5 % (11.5-15.5)
--- NOTE | 2020-05-31 05:57 | NUR ---
RT ADJUSTED VENT SETTINGS PER ABG
--- NOTE | 2020-05-31 06:06 | NUR ---
X-RAY PRESENT AT THE BEDSIDE
[2020-05-31 06:12] LABS: ANION GAP 9 (6-22 (CALC)); BUN 68 mg/dL (8-23); BUN/CREATININE RATIO 60 (12-20 (CALC)); CARBON DIOXIDE 18 mmol/l (22-30); CHLORIDE 107 mmol/l (95-108); CREATININE 1.1 mg/dL (0.7-1.3); GFR > 60 ML/MIN (>=60 (CALC)); GFR FOR AFR.AMER. > 60 ML/MIN (>=60 (CALC)); POTASSIUM 5.1 mmol/l (3.5-5.1); SODIUM 129 mmol/l (137-146)
--- NOTE | 2020-05-31 07:59 | NUR ---
PT SEEN IN BED 1 IN ICU, INTUBATED AND SEDATED. VENT KEEPS SATS AT 100%. MONITOR SHOWS PACED RHYTHM. RIJ TLC IN PLACE, LEVOPHED, DIPRIVAN AND IVF INFUSING. RAC 20g. DOZIER. PT NOT RESPONSIVE PER DIPRIVAN, CONDITION STABLE.
[2020-05-31] MEDS ORDERED: LASIX 20 MG TAB20 MG PO (10:51)
[2020-05-31] MEDS ORDERED: SPIRONOLACTONE25 MG PO (10:51)
[2020-05-31] MEDS ORDERED: CARVEDILOL3.125 MG PO (10:51)
--- NOTE | 2020-05-31 11:00 | NUR ---
PT SEEN BY DR BELL AND DR REINA THIS MORNING. PT REMAINS BEFORE, INTUBATED AND SEDATED, OXYGEN SETTINGS ADJUSTED DOWN BY JENNA KOWALSKI, PT TOLERATING WELL. BOLUS ONE LITER NS IN PROGRESS PER ORDER, TO BE FOLLOWED BY LACTIC ACID BLOOD DRAW.
--- NOTE | 2020-05-31 14:52 | NUR ---
PT CONTINUES TO BE TURNED FROM SIDE TO SIDE Q2H PER INTUBATION PROTOCOL. LACTIC ACID LEVEL IMPROVED, DR BELL AWARE. PT'S SON ILSA VISITING.
--- NOTE | 2020-05-31 14:55 | NUR ---
S: CAROLEE DAILEY is a 89 M who presents with PNEUMONIA. He has a history of COVID 19 . All medications in patient's chart were reviewed. O: VS: BP 106/64, P 60, RR 25,T 96 W 61kg, HT 65IN, Scr= 1.1,CrCl= 40ml/min A: Blood culture <is pending/show> which is sensitive to <>. Urine culture <is pending/show> which is sensitive to <>. P: Patient is on ZOSYN 3.375 Q6H . Vancomycin ordered for pharmacy to dose. Start Vancomycin 750MG IV Q14H. Vancomycin trough is drawn before the 4th dose on 06/03/20 @0730. Vancomycin goal trough is between <10-20 mcg/ml>. Pharmacy will follow and or advise on antibiotics use as needed.
--- NOTE | 2020-05-31 20:00 | NUR ---
REPORT GIVEN BY LEANNE. PATIENT IS INTABATED AND SEDATED. RESP EVEN AND UNLABORED. RIJ TLC INFUSING IV FLUIDS, DIPIRVAN, AND LEVOPHED. OJ IS TO LIS. DOZIER DRAINING CLEAR YELLOW URINE. BILATERAL WRIST RESTRIANTS IN PLACE. PACED ON TELE WITH FREQ PVC'S. FALL AND SAFTEY PRECAUTIONS IN PLACE.
--- NOTE | 2020-05-31 22:00 | NUR ---
PATIENT INTABATED AND SEDATED.
[2020-06-01] VITALS (52 sets, daily range): BP systolic 82–106; BP diastolic 51–80
--- NOTE | 2020-06-01 | NUR ---
PATIENT INTABATED AND SEDATED. RESP EVEN AND UNLABORED. NO S/S OF DISTRESS NOTED.
--- NOTE | 2020-06-01 02:00 | NUR ---
DIPIRVAN TITRIATED DUE TO PATIENT MOVING LEGS AND FEET.
--- NOTE | 2020-06-01 04:15 | NUR ---
MORNING LABS DRAWN VIA RIJ TLC
[2020-06-01 05:56] LABS: HEMOGLOBIN 8.3 g/dl (14.0-18.0); IMMATURE GRANULOCYTES 0.6 % (0.0-5.0); MEAN CELL VOLUME 102.7 fL CALC (80.0-100.0); MEAN CORPUSCULAR HGB 31.6 pG CALC (26.0-32.0); MEAN CORPUSCULAR HGB CONC 30.7 g/dL CAL (32.0-36.0); NEUT# 5.23 thou/uL (1.82-7.42); RED BLOOD COUNT 2.63 mill/uL (4.70-6.10); RED CELL DISTRI WIDTH 16.5 % (11.5-15.5)
[2020-06-01 05:57] LABS: ALKALINE PHOSPHATASE 108 u/l (38-126); BILIRUBIN, TOTAL 0.6 mg/dL (0.0-1.4); CARBON DIOXIDE 17 mmol/l (22-30); CHLORIDE 109 mmol/l (95-108); CREATININE 0.9 mg/dL (0.7-1.3); GFR > 60 ML/MIN (>=60 (CALC)); GFR FOR AFR.AMER. > 60 ML/MIN (>=60 (CALC)); SGOT/AST 34 u/l (19-48); SODIUM 131 mmol/l (137-146)
[2020-06-01 06:27] LABS: ALBUMIN 2.1 g/dL (3.2-5.0); ANION GAP 9 (6-22 (CALC)); BUN 44 mg/dL (8-23); BUN/CREATININE RATIO 49 (12-20 (CALC)); POTASSIUM 3.7 mmol/l (3.5-5.1); TOTAL PROTEIN 5.5 g/dL (6.3-8.2)
--- NOTE | 2020-06-01 07:01 | NUR ---
Patient is screened for rehab intervention and would benefit from PT and ST interventions if medical agrees
--- NOTE | 2020-06-01 07:35 | NUR ---
pt intubated and sedated; no apparent distress noted at this time; assessment completed; pt sedated; pinpoint pupils; no s/sx of pain/ facial grimaces noted; no n/v noted; resp even and unlabored; vent intact and maintained; settings of AC, 420 TV, 20 rate, 5.0 PEEP, 30% FiO2; 8.0 ETT secured at the 24cm lip line; hr irreg; paced with freq pvc on monitor; weak radial pulses; doppler right pedal pulse/ unable to doppler left pedal pulses; generalized edema noted noted; left foot cool to touch; abd soft with bs present; no bm noted per blurb writer; love to gravity draining clear yellow urine; penial/ scrotum edema noted; TLC patent to RIJ with propofol infusing at 25 mcg/kg/min, levophed gtt at 15 mcg/min and ivf infusing without complication; #20 to rac saline locked; repositioned to left side; oral care; restraints released and reapplied for nursing care; scds intact; call light within reach; will continue to monitor
--- NOTE | 2020-06-01 08:16 | NUR ---
Dr Peterson present at bedside to assess pt and discuss plan of care;
--- NOTE | 2020-06-01 09:10 | NUR ---
pt pechanga; easily awakens when name is called loudly; condition explained; pt able to squeeze this investment underwriter hand on command; pt now in spont vent mode; tolerating well; RT at bedside; verbal orders per MD to extubate; will continue to monitor
--- NOTE | 2020-06-01 09:55 | NUR ---
pt extubated at this time; RT and this marketing underwriter remain at bedside; o2 per nc placed at 3L; o2 sat 98%; pt continues to yell "let me "; iv intact and patent; levophed continues; love to gravity; repositioned; pt requiring freq suctioning; thin bloody sputum noted; restraints removed; will continue to monitor
--- NOTE | 2020-06-01 09:56 | NUR ---
PT EXTUBATED AND PLACED ON 3L NC.
--- NOTE | 2020-06-01 10:45 | NUR ---
pt continues to yell "let me "; pt alert to person and place; pt demanding to "let me "; Dr Peterson present at bedside to assess mentation in regards to potential DNR order; re-intubation and cpr explained per MD; pt yells "NO, LET ME ; will continue to monitor
--- NOTE | 2020-06-01 10:55 | NUR ---
son Lester Schreiber called per staff; phone passed to Dr Peterson; condition and pt demand for DNR explained to son; son agree with DNR; will continue to monitor
--- NOTE | 2020-06-01 12:15 | NUR ---
awake in bed; remains anxious; request for this contract writer to "turn my heart off"; pt continues to yell "let me "; reassured; iv intact and patent; levophed gtt at 20 mcg/min; no redness or edema noted at site; love to gravity; o2 per nc; repositioned; call light within reach; will continue to monitor
--- NOTE | 2020-06-01 13:27 | NUR ---
italo Batista present at bedside to assess pt
--- NOTE | 2020-06-01 13:28 | NUR ---
son Lester present at bedside
--- NOTE | 2020-06-01 14:00 | NUR ---
awake conversing with son; offers no complaints; no distress noted; iv intact and patent; levophed gtt at 20 mcg/min; love to gravity; repositioned; call light within reach; will continue to monitor
--- NOTE | 2020-06-01 16:06 | NUR ---
US at bedside
--- NOTE | 2020-06-01 16:20 | NUR ---
awake in bed; ice chips provided; iv intact and patent; repositioned; paced/ pvc on monitor; love to gravity; will continue to monitor
--- NOTE | 2020-06-01 18:04 | NUR ---
pt resting in bed with eyes closed; no apparent distress noted; resp even and unlabored; o2 per nc; love to gravity; iv intact and patent; levophed gtt cont at 20mcg/min; paced/ pvc on monitor; call light within reach
--- NOTE | 2020-06-01 19:30 | NUR ---
awake. no acute resp diff. hob remains elevated. coarse breath sounds bilat. o2 cont per nc. engine monitor shows paced thythm freq pvcs hr 64. #20 rac saline lock. rij tlc in place. ns infusing @ 100cchr, levo infusing @ 20mcg/min. love cath in place. urine clear yellow. turned & repositioned. requires total care for all needs. air mattress & fall precautions cont.
--- NOTE | 2020-06-01 22:00 | NUR ---
eyes closed. no resp distress. o2 cont per nc. turned & repositioned.
[2020-06-02] VITALS (29 sets, daily range): BP systolic 74–120; BP diastolic 47–75
--- NOTE | 2020-06-02 00:01 | NUR ---
eyes closed. no resp diff. bus monitor shows paced rhythm freq pvcs occas paced beats hr 60.
--- NOTE | 2020-06-02 02:00 | NUR ---
resting quietly. resps even & unlabored. no apparent distress.
--- NOTE | 2020-06-02 04:00 | NUR ---
blood drawn & sent to lab.
[2020-06-02 05:39] LABS: HEMOGLOBIN 7.9 g/dl (14.0-18.0); IMMATURE GRANULOCYTES 0.6 % (0.0-5.0); MEAN CELL VOLUME 102.8 fL CALC (80.0-100.0); MEAN CORPUSCULAR HGB 31.2 pG CALC (26.0-32.0); MEAN CORPUSCULAR HGB CONC 30.4 g/dL CAL (32.0-36.0); NEUT# 4.51 thou/uL (1.82-7.42); RED BLOOD COUNT 2.53 mill/uL (4.70-6.10); RED CELL DISTRI WIDTH 16.3 % (11.5-15.5)
[2020-06-02 05:54] LABS: ALBUMIN 2.1 g/dL (3.2-5.0); ALKALINE PHOSPHATASE 111 u/l (38-126); BILIRUBIN, TOTAL 0.8 mg/dL (0.0-1.4); BUN 30 mg/dL (8-23); BUN/CREATININE RATIO 35 (12-20 (CALC)); CARBON DIOXIDE 18 mmol/l (22-30); CHLORIDE 108 mmol/l (95-108); CREATININE 0.9 mg/dL (0.7-1.3); GFR > 60 ML/MIN (>=60 (CALC)); GFR FOR AFR.AMER. > 60 ML/MIN (>=60 (CALC)); MAGNESIUM 2.1 mg/dL (1.6-2.3); SGOT/AST 30 u/l (19-48); SODIUM 132 mmol/l (137-146); TOTAL PROTEIN 5.3 g/dL (6.3-8.2)
--- NOTE | 2020-06-02 06:00 | NUR ---
no resp diff this shift. o2 cont. hob remains elevated.
[2020-06-02 06:04] LABS: ANION GAP 9 (6-22 (CALC)); POTASSIUM 2.9 mmol/l (3.5-5.1)
--- NOTE | 2020-06-02 07:30 | NUR ---
PT LAYING IN BED. A&O X3. NO DISTRESS NOTED. O2 VIA NC @2L IN PLACE. WHEEZING ANTERIOR HEARD UPON AUSCULTATION. PT ABLE TO SELF SUCTION WITH NO DIFFICULTY, PINK TINGE SPUTUM NOTED IN CANISTER. MOIST COUGH HEARD. TRIPLE LUMEN TO RT IJ IN PLACE WITH NS AND LEVOPHED AT 20 MCG/MIN INFUSING. #20 RAC SALINE LOCK. BP STABLE AT THIS TIME. ICE CHIPS GIVEN, PT ABLE TO TOLERATE WELL. DOZIER CATH DRAINING VIA GRVAITY WITH CLEAR YELLOW URINE NOTED. WEAK PEDAL PULSES, PORTABLE DOPPLER USED. PACED ON UNIVERSITY TEACHER RATE 69. ASSESSMENT COMPLETED. DISCUSSED POC. CALL LIGHT WITHIN REACH.
--- NOTE | 2020-06-02 08:17 | NUR ---
DR BELL AT BEDSIDE DISCUSSING POC
--- NOTE | 2020-06-02 10:37 | NUR ---
SPEECH THERAPY AT BEDSIDE
--- NOTE | 2020-06-02 12:02 | NUR ---
PT CURRENTLY BEING TRANSPORTED TO RADIOLOGY VIA WC WITH O2 VIA NC @2L.
--- NOTE | 2020-06-02 12:36 | NUR ---
PT ARRIVED BACK TO ICU 1 IN STABLE CONDITION. LEVOPHED CONTINUES AT 20 MCG/MIN. AUDIBLE WHEEZING NOTED WITH EXERTION. CALL LIGHT PLACED WITHIN REACH.
--- NOTE | 2020-06-02 12:45 | NUR ---
LEVOPHED TITRATED TO 21 MCG/MIN. BP 74/47.
--- NOTE | 2020-06-02 13:11 | NUR ---
SON AT BEDSIDE
--- NOTE | 2020-06-02 13:11 | NUR ---
FRIEND AT BEDSIDE
--- NOTE | 2020-06-02 13:30 | NUR ---
LEVOPHED CONTINUES AT 21 MCG/MIN. BP REMAINS STABLE AT THIS TIME.
--- NOTE | 2020-06-02 15:30 | NUR ---
MEDICATED WITH LASIX AND MORPHINE FOR PAIN RELATING TO SCROTUM. SCROTUM ELEVATED. PT REPOSITIONED IN BED. O2 TITRATED TO 4L. CALL LIGHT WITHIN REACH.
--- NOTE | 2020-06-02 16:00 | NUR ---
PT SLEEPING IN BED, NO DISTRESS NOTED. O2 97-98%. CALL LIGHT WITHIN REACH.
--- NOTE | 2020-06-02 18:02 | NUR ---
ASSISTED PT UP IN BED AND SET UP FOR DINNER. PT PLACED IN HIGH FOWLERS POSITION. LEVOPHED GTT CONTINUES AT 21 MCG/MIN. BP STABLE 103/64 HR 87. EDEMA IN SCROTUM IMPROVING. PT REPORTS TO BE FEELING BETTER AND RELIEF. 450 CC OF CLEAR YELLOW URINE EMPTIED FROM DOZIER. CALL LIGHT WITHIN REACH.
--- NOTE | 2020-06-02 19:30 | NUR ---
awake. no resp diff. o2 cont per nc. coarse breath sounds bilat. residential monitor shows paced thythm freq pvcs hr 87. #20 rac saline lock. rij tlc in place. levo infusing @ 21mcg/min, ns infusing @ 10cchr. po fluids given with nectar thickner. ortega well. no choking. love cath in place. urine clear yellow. scrotum remains edematous. turned & repositioned. fall precautions cont.
--- NOTE | 2020-06-02 22:00 | NUR ---
eyes closed. no distress. gambling monitor shows paced rhythm freq pvcs hr 84.
[2020-06-03] VITALS (36 sets, daily range): BP systolic 81–118; BP diastolic 45–72
--- NOTE | 2020-06-03 00:01 | NUR ---
eyes closed. no resp diff. o2 cont. hob remains elevated.
--- NOTE | 2020-06-03 02:00 | NUR ---
resting quietly. no apparent distress. ivf infusing well.
--- NOTE | 2020-06-03 04:00 | NUR ---
awake. no resp diff. o2 cont. love drainingg well.
--- NOTE | 2020-06-03 05:30 | NUR ---
jamariy here. pcxr obtained. blood drawn & sent to lab.
[2020-06-03 05:38] LABS: HEMATOCRIT 26.1 % (39.0-50.0); IMMATURE GRANULOCYTES 0.4 % (0.0-5.0); MEAN CELL VOLUME 100.4 fL CALC (80.0-100.0); MEAN CORPUSCULAR HGB 30.8 pG CALC (26.0-32.0); MEAN CORPUSCULAR HGB CONC 30.7 g/dL CAL (32.0-36.0); NEUT# 4.22 thou/uL (1.82-7.42); RED BLOOD COUNT 2.6 mill/uL (4.70-6.10); RED CELL DISTRI WIDTH 16.2 % (11.5-15.5)
[2020-06-03 05:57] LABS: ALBUMIN 2.2 g/dL (3.2-5.0); ALKALINE PHOSPHATASE 114 u/l (38-126); ANION GAP 8 (6-22 (CALC)); BILIRUBIN, TOTAL 0.6 mg/dL (0.0-1.4); BUN 23 mg/dL (8-23); BUN/CREATININE RATIO 24 (12-20 (CALC)); CARBON DIOXIDE 20 mmol/l (22-30); CHLORIDE 105 mmol/l (95-108); CREATININE 0.9 mg/dL (0.7-1.3); GFR > 60 ML/MIN (>=60 (CALC)); GFR FOR AFR.AMER. > 60 ML/MIN (>=60 (CALC)); MAGNESIUM 1.9 mg/dL (1.6-2.3); POTASSIUM 3.1 mmol/l (3.5-5.1); SGOT/AST 33 u/l (19-48); SODIUM 130 mmol/l (137-146); TOTAL PROTEIN 5.8 g/dL (6.3-8.2)
--- NOTE | 2020-06-03 07:00 | NUR ---
PT SLEEPING IN BED. AWAKENED TO COMPLETE ASSESSMENT. A&O X3. NO DISTRESS NOTED. O2 VIA NC @4L O2 100% O2 TITRATED DOWN TO 2L PT TOLERATING WELL SUSTAINING AT 98%. WHEEZING HEARD UPON AUSCULTATION. WET NON PRODUCTIVE COUGH NOTED AT THIS TIME. TRIPLE LUMEN TO RIJ IN PLACE. NS @10 ML/HR AND LEVOPHED 21 MCG/MIN INFUSING AT THIS TIME. THIRD LUMEN HEALTHY AND PATENT. SKIN TEAR TO LFA WITH DRESSING CDI. DOZIER CATHETER DRAINING VIA GRAVITY WITH CLEAR YELLOW URINE NOTED. SWELLING TO SCROTUM IMPROVING, SCROTUM REMAINS ELEVATED. PT REPORTS TO BE FEELING BETTER. +1 EDEMA NOTED TO LLE, TRACE EDEMA NOTED TO RT. DOPPLER USED FOR PEDAL PULSES. NO NEEDS AT THIS TIME. ASSESSMENT COMPLETED. DISCUSSED POC. CALL LIGHT WITHIN REACH.
--- NOTE | 2020-06-03 07:32 | NUR ---
ROSA MARIA RESULTS GIVEN TO Lawson RILEY, NEW DOSAGE TO BE STARTED TODAY.
--- NOTE | 2020-06-03 08:11 | NUR ---
SPEECH THERAPY AND PHYSICAL THERAPY AT BEDSIDE
--- NOTE | 2020-06-03 08:24 | NUR ---
DR BELL AT BEDSIDE DISCUSSING POC
--- NOTE | 2020-06-03 08:48 | NUR ---
Lilli CARVAJAL PT AT BEDSIDE ASSISTING PT TO CHAIR. EXERTIONAL SOB NOTED. O2 TITRATED TO 4L VIA NC.
--- NOTE | 2020-06-03 08:50 | NUR ---
Pt seen at [facility]ise for STILL OPERATOR HELPER follow-up. Pt waking up in semi-fowlers upon entry. Pt A&O x2. Pt seen for therapeutic trials of soft solids and nectar thick liquids. STILL OPERATOR HELPER assisted in thickening liquids for all liquids present on tray. Pt required moderate to maximum cueing in order to follow aspiration precautions. Pt attempted completing breakfast tray at a fast rate without clearing oral cavity prior to taking additional bites. Pt benefitted from direct cues to slow eating rate. Pt independently alternated between solids and liquids. Pt's O2 dropped to 88-90 during meals on 2L NC O2 and RN increased to 4L during meals. Pt has been receiving medication PO in applesauce either broken up or crushed w/o difficulty.
--- NOTE | 2020-06-03 08:59 | NUR ---
S: CAROLEE DAILEY is a 89 M who presents with pneumonia. He has a history of prior CVA, hypertension, dyslipidemia, anxiety, dementia, known coronary arterial disease, benign prostatic hypertrophy, COPD, emphysema, iron deficient anemia, myocardial infarction, congestive heart failure, hepatitis C, obstructive sleep apnea, and peripheral vascular disease. All medications in patient's chart were reviewed. O: Vancomycin Trough 06/03/20 @ 0530: 11 mcg/ml Trough was drawn early, predicted true trough = 10 mcg/ml VS: BP 101/72 mmHg, P 86 bpm, RR 18 bpm,T 97.7 F W 60 kg, HT 65 in, Scr=1 mg/dl,CrCl= 42.5 ml/min A: Blood culture is pending. P: Patient is on Zosyn 3.375 g IV Q6H. Vancomycin ordered for pharmacy to dose. Change Vancomycin dose to 1,250 mg IV Q24H. Vancomycin trough is drawn before the 4th dose on 06/06/20 @ 08:30. Vancomycin goal trough is between 15-20 mcg/ml. Pharmacy will follow and or advise on antibiotics use as needed.
--- NOTE | 2020-06-03 10:20 | NUR ---
UPON ENTERING ROOM TO HANG NEW BAG OF LEVOPHED, PT REQUESTING TO "" NOT IN SUICIDAL IDEATION . PT STATING " I AM NOT GOING TO GET ANY BETTER" "I AM READY TO GO" "I CAN'T EVEN GET FROM THE BED TO THE CHAIR WITHOUT HELP". PT INFORMED OF DNR THAT IS CURRENTLY ON CHART. PT REQUESTING TO SEE THE PHYSICIAN. DR BELL NOTIFIED.
--- NOTE | 2020-06-03 10:30 | NUR ---
DR BELL NOTFIFIED. HOSPICE CONSULT PLACED. PATITO FROM CASE MANAGEMENT NOTIFIED. PT INFORMED AND EDUCATED ON HOSPICE. PT AGREEABLE. PER PT SON ROSALBA TO BE NOTIFIED. ROSALBA NOTIFIED AND UPDATED ON D/C PLANNING TO HOSPICE ALONG WITH THE PTS VERBALIZED WISHES.
--- NOTE | 2020-06-03 11:55 | NUR ---
LEVOPHED TITRATED TO 20 MCG/MIN.
--- NOTE | 2020-06-03 12:15 | NUR ---
PER BESSIE AT [facility], [facility] PCR NEEDED. PT AGREEABLE. PCR SAMPLE OBTAINED FROM BOTH NARES. LABELED, DATE/TIME AND INITIALS AND SENT TO LAB.
--- NOTE | 2020-06-03 13:55 | NUR ---
PT TITRATED OFF LEVOPHED DRIP PER PROTOCOL. PT TOLERATING WELL.
--- NOTE | 2020-06-03 14:27 | NUR ---
YEFRI FROM [facility] AT BEDSIDE
--- NOTE | 2020-06-03 14:42 | NUR ---
PROMISE NAVARRETE AT BEDSIDE
--- NOTE | 2020-06-03 15:17 | NUR ---
APPROVAL OBTAINED BY LEAD SYSTEMS ANALYST FOR SECOND SON TO VISIT PRIOR TO D/C TO HOSPICE
--- NOTE | 2020-06-03 18:36 | NUR ---
KURT LANIER AT [facility]3] TO ARRIVE IN 30M-45M
--- NOTE | 2020-06-03 18:59 | NUR ---
Discharge instructions given. Patient and son verbalizes understanding of same. Discharged in stable condition via [facility] medical Transport to [facility] accompanied by staff. All belongings sent with pt.
== END 2020-06-03 19:00 | disposition hospice, inpatient (51) | DRG 871 ==
LOC: ED 11:01 → ED-I 11:11 → ED 11:11 → ED-I 13:30 → ED 13:43 → MS2 13:44 → ICU 15:56
PROVIDERS: ADMIT Internal Medicine; ATTEND Internal Medicine
PROC: 0BH17EZ Insertion of Endotracheal Airway into Trachea, Via Natural or Artificial Opening (ICD-10-PCS; principal; 2020-05-30)
PROC: 5A1945Z Respiratory Ventilation, 24-96 Consecutive Hours (ICD-10-PCS; 2020-05-30)
PROC: 02HV33Z Insertion of Infusion Device into Superior Vena Cava, Percutaneous Approach (ICD-10-PCS; 2020-05-30)
PROC: 0T9B70Z Drainage of Bladder with Drainage Device, Via Natural or Artificial Opening (ICD-10-PCS; 2020-05-30)
DX: A41.9 Sepsis, unspecified organism (principal); J18.9 Pneumonia, unspecified organism; J96.01 Acute respiratory failure with hypoxia; R65.21 Severe sepsis with septic shock; E87.2 Acidosis; I11.0 Hypertensive heart disease with heart failure; I50.9 Heart failure, unspecified; I95.9 Hypotension, unspecified; I25.10 Atherosclerotic heart disease of native coronary artery without angina pectoris; E78.5 Hyperlipidemia, unspecified; J44.9 Chronic obstructive pulmonary disease, unspecified; F41.9 Anxiety disorder, unspecified; F03.90 Unspecified dementia, unspecified severity, without behavioral disturbance, psychotic disturbance, mood disturbance, and anxiety; B19.20 Unspecified viral hepatitis C without hepatic coma; G47.33 Obstructive sleep apnea (adult) (pediatric); I73.9 Peripheral vascular disease, unspecified; I25.2 Old myocardial infarction; Z66 Do not resuscitate; Z51.5 Encounter for palliative care; Z95.1 Presence of aortocoronary bypass graft; Z95.810 Presence of automatic (implantable) cardiac defibrillator; Z87.891 Personal history of nicotine dependence; Z86.73 Personal history of transient ischemic attack (TIA), and cerebral infarction without residual deficits; Z20.822 Contact with and (suspected) exposure to COVID-19
CPT/HCPCS: J1650; J2060; J3370; Q9967; S0164